=== PATIENT | male | born 1975 | race Caucasian/White ===

== ENCOUNTER 2021-09-03 10:59 | Emergency (ER) | payer BC ==
[2021-09-03] MEDS ORDERED: Sodium Chloride 0.9% 10 ML Syringe FLUSH PRN (11:33)
[2021-09-03 12:09] LABS: ANION GAP 12.6 mEq/L (7-13); CHLORIDE,CL 99 mmol/L (98-107)
[2021-09-03 12:14] LABS: SODIUM,NA 136 mmol/L (136-145)
== END 2021-09-03 14:50 ==
LOC: DL.ED 10:59
DX: G45.9 Transient cerebral ischemic attack, unspecified (principal); H53.133 Sudden visual loss, bilateral; I10 Essential (primary) hypertension; Z88.0 Allergy status to penicillin; Z88.8 Allergy status to other drugs, medicaments and biological substances; Z79.899 Other long term (current) drug therapy; Z20.822 Contact with and (suspected) exposure to COVID-19
CPT/HCPCS: 36415; 70450; 80053; 83735; 84484; 85025; 86140; 87635; 93005; 93010; 99285; J3490; U0002